=== PATIENT | female | born 1990 | race Caucasian/White ===

== ENCOUNTER 2020-07-04 12:47 | Emergency (ER) | payer MEDICAID, SELFPAY ==
[2020-07-04 12:48] VITALS: BP 124/69; PULSE 117; RESP 16; TEMP 36.9; BMI 24.9
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
[2020-07-04] MEDS: Naproxen 500 MG Tablet PO (14:56)
== END 2020-07-04 14:56 | disposition home or self-care (01) ==
PROVIDERS: Emergency Provider Physician Assistant Medical
DX: S70.01XA Contusion of right hip, initial encounter (principal); S70.11XA Contusion of right thigh, initial encounter; S80.01XA Contusion of right knee, initial encounter; F17.200 Nicotine dependence, unspecified, uncomplicated; V43.52XA Car driver injured in collision with other type car in traffic accident, initial encounter
CPT/HCPCS: 73502; 73564; 99283

== ENCOUNTER 2020-12-06 19:38 | Emergency (ER) | payer MEDICAID, SELFPAY ==
[2020-12-06 19:39] VITALS: BP 138/84; PULSE 92; RESP 18; TEMP 36.3; O2SAT 100; BMI 26.6
--- NOTE | 2020-12-06 19:49 | ED.RN ---
NO OLD EKGS
--- NOTE | 2020-12-06 19:50 | EKG12_ITS ---
Test Reason : CHEST PAIN Blood Pressure : / mmHG Vent. Rate : 090 BPM Atrial Rate : 090 BPM P-R Int : 132 ms QRS Dur : 080 ms QT Int : 362 ms P-R-T Axes : 083 063 060 degrees QTc Int : 442 ms Normal sinus rhythm Normal ECG Confirmed by VIMAL MARIE, CARITO ([id number]), dictionary editor WILMER WICK ([id number]) on 12/08/2020 11:25:45 AM Referred By: Confirmed By:CARITO CELIS MD
[2020-12-06 20:13] LABS: Absolute Lymphocyte Count 4.07 X10^3/uL (0.83-4.51); Absolute Neutrophil Count 4.9 X10^3/uL (2.0-7.7); Basophil# 0.04 X10^3/uL; Basophil% 0.4 % (0-1); Eosinophil# 0.35 X10^3/uL; Eosinophils% 3.4 % (0-5); Hematocrit 41.7 % (37-47); Hemoglobin 13.5 g/dL (12.0-15.0); Lymphocyte # 4.07 X10^3/ul (4.0); Lymphocyte % 39.9 % (19-41); Mean Corp Hgb Conc 32.4 g/dL (32-36); Mean Corpuscular Hgb 30.5 pg (27.0-32.0); Mean Corpuscular Volume 94.1 fL (81-99); Mean Platelet Vol. 9.5 fl (6.2-12.0); Monocyte# 0.81 X10^3/uL; Monocyte% 7.9 % (0-10); NRBC Flagged by Analyzer 0 % (0-5); Neutrophil % 48.2 % (47-70); Platelet Count 280 K/mm3 (150-450); RBC Distribution Width CV 13.2 % (11.6-14.6); RBC Distribution Width SD 45.3 fl (35.1-43.9); Red Blood Count 4.43 M/mm3 (4.2-5.4); White Blood Count 10.2 K/mm3 (4.4-11.0)
--- NOTE | 2020-12-06 20:20 | RAD_ITS ---
STUDY: X-RAY CHEST REASON FOR EXAM: Female, 30 years old. Chest pain TECHNIQUE: Frontal view COMPARISON: None. FINDINGS: The lungs are clear and expanded. There is no demonstrated pleural abnormality. Normal size heart. Normal mediastinum and sara. Normal visualized pulmonary arteries. Normal visualized aortic arch and descending thoracic aorta. Normal visualized thoracic spine. Normal visualized ribs, clavicles, and shoulders. There is no demonstrated abnormality of the visualized soft tissue structures of the upper abdomen. RAD/Chest 1 View (Portable) IMPRESSION: Normal x-ray examination of the chest. Electronically Signed: Armin Toth DO at 21:01 EDT Tel [phone], Service support ,
[2020-12-06 20:43] LABS: Anion Gap 5 (5-15); BUN 13 mg/dL (7-18); BUN/Creat Ratio 19.5 RATIO (10-20); Calcium,Total 9.4 mg/dL (8.5-10.1); Chloride 105 mmol/L (98-107); Creatinine, Serum 0.67 mg/dL (0.55-1.02); EST Glomerular Filtration Rate 109 mL/min (>60); Est Glom Filt Rate - Afr Amer 132 mL/min (>60); Estimated Creatinine Clearance 104.09 ml/min; Glucose 96 mg/dL (74-106); Potassium 3.7 mmol/L (3.5-5.1); Sodium Level 138 mmol/L (136-145)
[2020-12-06 21:44] VITALS: BP 121/63; PULSE 85; RESP 20; O2SAT 100; O2SAT 99
[2020-12-06 22:00] VITALS: BP 117/66; PULSE 85; RESP 15; O2SAT 98
[2020-12-06 22:24] LABS: Internal QC Validated? YES +Cl - CLEAR BKGD; Pregnancy, Serum, hCG Quali. NEGATIVE Negative
[2020-12-06 22:32] LABS: D-Dimer Quantitative (DVT/PE) <= 0.27 FEU/ug/m (0.27-0.49)
[2020-12-06 23:00] VITALS: BP 113/60; PULSE 89; RESP 15; O2SAT 98
--- NOTE | 2020-12-07 00:47 | ED.DEP ---
ED Disposition - Plan for ED Patient: Instructions: ED Chest Pain, Uncertain Cause Referrals: Kacie Molina MD [Primary Care Provider] -
[2020-12-07 00:56] VITALS: PULSE 87; RESP 14; O2SAT 98
--- NOTE | 2020-12-07 01:08 | ED.DCSUM_ITS ---
- ER Visit Summary Date of Service: 12/07/20 Chief Complaint: Chest pain History of Present Illness: The patient is a 30 F presenting with chest pain. She states this started yesterday. She has a sharp pain in her mid chest that goes to her neck. She states she noticed swelling in both feet last week but this has resolved. She has mild associated shortness of breath. She denies fever. Denies PE/DVT risk factors. She is a smoker, no other CAD risk factors. Physical Examination: Vitals are stable. Patient is afebrile. Alert no acute distress. HEENT exam is unremarkable. Neck is supple. Lungs are clear and equal bilaterally. Heart is regular rate and rhythm. Abdomen is soft nontender nondistended. Extremities are unremarkable. Skin is warm and dry. No focal neurologic deficit. Remainder of exam is unremarkable. Emergency Department Course and Treatment: EKG is sinus rhythm rate of 90 with no acute ischemic changes. CBC, chemistries unremarkable. Troponin is negative. D-dimer normal. hCG negative. Chest x-ray read by myself and radiology shows normal x-ray examination of the chest. Her heart score is 2. Delta troponin was obtained and is negative. On reevaluation, patient is resting comfortably. Advised to follow-up with her primary care physician. Advised return to ED for worsening complaints. Disposition: Discharge home Impression: Chest pain This note was generated with [employer] dictation software. It may contain incorrect words, spelling, and punctuation that were not noted in review of the chart prior to signing ED Disposition - Plan for ED Patient: Disposition: Home or Assisted Living Instructions: ED Chest Pain, Uncertain Cause Referrals: Kacie Molina MD [Primary Care Provider] -
== END 2020-12-07 00:57 | disposition home or self-care (01) ==
LOC: ED 22:17
PROVIDERS: Emergency Provider Emergency Medicine; PCP Family Medicine
DX: R07.9 Chest pain, unspecified (principal); R06.02 Shortness of breath; F17.200 Nicotine dependence, unspecified, uncomplicated
CPT/HCPCS: 71045; 80048; 84484; 84703; 85025; 85379; 93005; 99283; A4216

== ENCOUNTER → 2022-07-12 | Outpatient (CLI) | payer MEDICAID, SELFPAY ==
[2022-07-25 15:09] LABS: HPV APTIMA, High Risk Negative (Negative)
== END | disposition home or self-care (01) ==
PROVIDERS: PCP Family Medicine; Visit Provider Nurse Practitioner Women's Health
DX: Z12.4 Encounter for screening for malignant neoplasm of cervix (principal)
CPT/HCPCS: 87624; 88175; G0145